=== PATIENT | male | born 1985 | race Caucasian/White ===

== ENCOUNTER 2016-07-26 14:05 | Emergency (ER) | payer SELFPAY ==
[~2016-07-26] VITALS: Ht 175.3 cm; Wt 90.0 kg
[2016-07-26] MEDS ORDERED: KETOROLAC 60MG/2ML VIAL IM ONE (15:30)
[2016-07-26 17:41] VITALS: BP 110/66
== END 2016-07-26 19:13 | disposition left against medical advice (07) ==
LOC: ER 14:19
DX: R51 Headache (principal); F10.129 Alcohol abuse with intoxication, unspecified; I10 Essential (primary) hypertension
CPT/HCPCS: 36415; 96372; 99283; G0482; J1885

== ENCOUNTER 2016-07-27 | Emergency (ER) | payer SELFPAY ==
[~2016-07-27] VITALS: Ht 177.8 cm; Wt 86.0 kg
[2016-07-27] MEDS ORDERED: ACETAMINOPHEN 650MG/20.3ML UDC PO ONE (02:45)
[2016-07-27] MEDS ORDERED: TRAMADOL 50MG TABLET PO ONE (02:45)
[2016-07-27 02:50] VITALS: BP 123/80
[2016-07-27 03:28] LABS: *BARBITURATES SCREEN URINE NEGATIVE (NEGATIVE); *BENZODIAZEPINES SCREEN URINE PRESUMTIVE POSITIVE (NEGATIVE); METHADONE URINE SCREEN NEGATIVE (NEGATIVE); PHENCYCLIDINE URINE SCREEN NEGATIVE (NEGATIVE)
[2016-07-27 03:32] LABS: *AMPHETAMINES SCREEN URINE NEGATIVE (NEGATIVE); *COCAINE SCREEN URINE NEGATIVE (NEGATIVE); CANNABINOID URINE SCREEN NEGATIVE (NEGATIVE); ECSTASY MDMA SCREEN URINE NEGATIVE (NEGATIVE); OPIATES URINE SCREEN NEGATIVE (NEGATIVE)
== END 2016-07-27 05:46 | disposition home or self-care (01) ==
LOC: ER 00:02
DX: S09.90XA Unspecified injury of head, initial encounter (principal); F10.129 Alcohol abuse with intoxication, unspecified; Y90.6 Blood alcohol level of 120-199 mg/100 ml; F32.9 Major depressive disorder, single episode, unspecified; I10 Essential (primary) hypertension; I67.1 Cerebral aneurysm, nonruptured; Z98.890 Other specified postprocedural states; Z91.81 History of falling; W01.0XXA Fall on same level from slipping, tripping and stumbling without subsequent striking against object, initial encounter; Y92.89 Other specified places as the place of occurrence of the external cause
CPT/HCPCS: 36415; 70450; 80305; 99285; G0482